=== PATIENT | male | born 1950 | race Caucasian/White ===

== ENCOUNTER 2021-11-03 13:12 | Inpatient (IN) | payer OTHER ==
[~2021-11-03] VITALS: Ht 170.2 cm; Wt 77.6 kg
--- NOTE | 2021-11-03 13:13 | NUR ---
[facility], FOUND BY IN THE FLOOR W/ AMS. LKW 1120, BG 242 BECK TENDER. FEELING SICK, DIARRHEA X 2 DAYS. TO ER BED 1, HOOKED TO MONITOR, CHANGED TO HOSP GOWN, WARM BLABNKET PROVIDED. AAO x 2. BREATHING EVEN AND UNLABORED. AWAITING MD RECINOS
--- NOTE | 2021-11-03 13:25 | NUR ---
BLOOD DRAWN AND SENT TO LAB.
--- NOTE | 2021-11-03 13:28 | NUR ---
DR RUIZ AT BEDSIDE
[2021-11-03 14:27] LABS: BASOPHILS % (AUTO) 0.1 % (0.0-2.0); HEMATOCRIT 48 % (39-51); HEMOGLOBIN 16.2 g/dL (13.5-17.5); LYMPHOCYTES # (AUTO) 0.6 K/uL (0.8-4.8); MEAN CORPUSCULAR HGB CONC 34 g/dl (31.0-36.0); MEAN CORPUSCULAR VOLUME 97 fL (80-96); MONOCYTES # (AUTO) 1.2 K/uL (0.1-1.30); MONOCYTES % (AUTO) 8.3 % (2.0-12.0); NEUTROPHILS # (AUTO) 12.4 K/uL (1.8-8.9); NEUTROPHILS % (AUTO) 87.6 % (43.0-81.0); PLATELET COUNT (AUTO) 209 K/uL (150-450); WHITE BLOOD COUNT (AUTO) 14.2 K/uL (4.3-11.0)
[2021-11-03] MEDS ORDERED: IV NS 0.9% 1,000 ML IV ONE (14:30)
[2021-11-03 14:42] LABS: CALCIUM, SERUM 8.9 mg/dL (8.5-10.1); CARBON DIOXIDE 26 mmol/L (21-32); CHLORIDE 95 mmol/L (98-107); GLUCOSE 136 mg/dL (74-106); POTASSIUM 3.5 mmol/L (3.5-5.1); SODIUM SERUM 131 mmol/L (136-145); UREA NITROGEN, BLOOD 32 mg/dL (7-18)
[2021-11-03 14:57] LABS: ALANINE AMINOTRANSFERASE 44 U/L (12-78); ALBUMIN 2.7 g/dL (3.4-5.0); ALKALINE PHOSPHATASE 86 U/L (46-116); ASPARTATE AMINOTRANSFERASE 51 U/L (15-37); BILIRUBIN,DIRECT 0.5 mg/dL (0.0-0.2); BILIRUBIN,TOTAL 1.5 mg/dL (0.2-1.0); TOTAL PROTEIN, SERUM 7.8 g/dL (6.4-8.2)
--- NOTE | 2021-11-03 14:57 | NUR ---
COVID TEST COLLECTED AND SENT
--- NOTE | 2021-11-03 15:26 | NUR ---
URINE SAMPLE COLLECTED AND SENT TO LAB
[2021-11-03 15:55] LABS: BILIRUBIN,URINE SMALL (NEGATIVE); COLOR,URINE YELLOW (YELLOW); LEUKOCYTE ESTERASE ,URINE NEGATIVE (NEGATIVE); NITRITE, URINE NEGATIVE (NEGATIVE); PROTEIN,URINE >=300 mg/dl (NEGATIVE); UGLUCOSE NEGATIVE (NEGATIVE)
[2021-11-03 16:16] LABS: BACTERIA,URINE 1+ /HPF (None Seen); COARSE GRANULAR CASTS,URINE Few /LPF (None Seen); RBC,URINE 51-80 /HPF (0-2); SQUAMOUS EPITHELIAL CELL,UR 0-2 /HPF (None Seen); WBC,URINE 0-2 /HPF (0-3)
[2021-11-03 16:17] LABS: FINE GRANULAR CASTS,URINE Few /LPF (None Seen); MUCUS,URINE Few /LPF (None Seen)
[2021-11-03 16:41] LABS: ACETAMINOPHEN 0 ug/ml (10-30); ALCOHOL, BLOOD < 3 mg/dL (0-0)
[2021-11-03] MEDS ORDERED: TAMS-12 PO (16:55)
[2021-11-03] MEDS ORDERED: LOSA25TA27 PO (16:55)
[2021-11-03] MEDS ORDERED: ROSU20TA32 PO (16:55)
[2021-11-03] MEDS ORDERED: FEBU80TA PO (16:55)
[2021-11-03] MEDS ORDERED: IV NS 0.9% 1,000 ML BAG IV ONE (17:00)
[2021-11-03] MEDS ORDERED: DOXYCYCLINE 100 MG in IV D5W 100 ML IV ONE (17:00)
[2021-11-03] MEDS ORDERED: CEFTRIAXONE 1GM BAG (ER ONLY) 1 GM/50 ML PIGGYBACK IV ONE (17:00)
[2021-11-03] MEDS ORDERED: CEFTRIAXONE 1GM BAG (ER ONLY) 50 ML IV ONE (17:01)
[2021-11-03] MEDS ORDERED: IV NS 0.9% 500 ML BAG IV ONE (17:30)
[2021-11-03] MEDS ORDERED: MAG HYDROX/AL HYDROX/SIMETH 30 ML UDC PO PRN (18:00)
[2021-11-03] MEDS ORDERED: HYDROCODONE/APAP 10/325MG TABLET PO PRN (18:00)
[2021-11-03] MEDS ORDERED: MAGNESIUM HYDROXIDE 30 ML UDC PO PRN (18:00)
[2021-11-03] MEDS ORDERED: Z GUARD REMEDY 4 OZ OINT TP PRN (18:00)
[2021-11-03] MEDS ORDERED: ACETAMINOPHEN 325 MG TABLET PO PRN (18:00)
[2021-11-03] MEDS ORDERED: ONDANSETRON HCL/PF 4 MG/2 ML VIAL IVP PRN (18:00)
--- NOTE | 2021-11-03 19:25 | NUR ---
REPORT GIVEN TO RUBY BERRY FOR [facility]
--- NOTE | 2021-11-03 21:32 | NUR ---
PAGED MARIS EPRP. AWAITING A CALL BACK FROM MARIS DENSON.
--- NOTE | 2021-11-03 21:48 | NUR ---
MARIS ON PHONE WITH ER
[2021-11-03] MEDS: ATORVASTATIN 40 MG TABLET PO SCH (22:00)
--- NOTE | 2021-11-04 00:42 | NUR ---
RECEIVED A CALL FROM DR. MAS FROM [facility]. PT IS AUTHORIZED TO STAYN AT [facility]
[2021-11-04] MEDS: IV NS 0.9% 1,000 ML IV PRN (03:50)
[2021-11-04] MEDS: TAMSULOSIN 0.4 MG CAP.SR.24H PO SCH ×2 (05:42→22:42)
[2021-11-04] MEDS ORDERED: TAMSULOSIN 0.4 MG CAP.SR.24H ONE (05:42)
--- NOTE | 2021-11-04 06:49 | NUR ---
LAB AT BEDSIDE
[2021-11-04 07:37] LABS: BASOPHILS % (AUTO) 0.1 % (0.0-2.0); HEMATOCRIT 44 % (39-51); HEMOGLOBIN 15.2 g/dL (13.5-17.5); LYMPHOCYTES # (AUTO) 0.6 K/uL (0.8-4.8); LYMPHOCYTES % (AUTO) 4.4 % (20.0-44.0); MEAN CORPUSCULAR HGB CONC 35 g/dl (31.0-36.0); MEAN CORPUSCULAR VOLUME 96 fL (80-96); MONOCYTES % (AUTO) 6.5 % (2.0-12.0); NEUTROPHILS # (AUTO) 13.1 K/uL (1.8-8.9); PLATELET COUNT (AUTO) 197 K/uL (150-450); RED BLOOD CELL COUNT(AUTO) 4.58 MIL/uL (4.5-6.0); WHITE BLOOD COUNT (AUTO) 14.7 K/uL (4.3-11.0)
[2021-11-04 08:00] LABS: CALCIUM, SERUM 8.6 mg/dL (8.5-10.1); CREATININE 1.9 mg/dL (0.6-1.3); MAGNESIUM 1.8 mg/dL (1.8-2.4); POTASSIUM 3.1 mmol/L (3.5-5.1)
--- NOTE | 2021-11-04 08:25 | NUR ---
TELE BED 112
[2021-11-04] MEDS ORDERED: POTASSIUM CL. PREMIX PERIPHER. 50 ML ONE (08:50)
[2021-11-04] MEDS: POTASSIUM CL. PREMIX PERIPHER. 50 ML IV SCH ×4 (09:00→12:25)
[2021-11-04] MEDS: DOXYCYCLINE 100 MG in IV D5W 100 ML IV SCH ×2 (09:06→21:13)
--- NOTE | 2021-11-04 09:14 | NUR ---
report given to lalo saenz. pt awaiting transfer to floor.
--- NOTE | 2021-11-04 09:30 | NUR ---
Patient admitted from ER reported by Esteban BERRY, admitting Dx is pneumonia. Respiratory even and unlabored on room air. Skin is warm to touch keep clean/dry. Kept elevated HOB for ensure airway and lowest bed of position for safety. Call light within reach. Will continue to monitor.
[2021-11-04] MEDS: LOSARTAN POTASSIUM 25 MG TABLET PO SCH (10:37)
[2021-11-04] MEDS: CEFTRIAXONE 1 G in IV D5W 50 ML IV SCH (16:29)
--- NOTE | 2021-11-04 18:07 | NUR ---
RN Closing Note Patient resting in bed, remains AO x 3-4. Respiratory even and unlabored on room air. Does no appears pain or discomfort. Skin is warm to touch, keep clean/dry, intact new IV site on right forearm. Patient started Abx and tolerated, no adverse reaction observed. Kept elevated HOB for airway and lower position of the bed for safety. Call light within reach, all needs met. will endorse retail shift supervisor.
[2021-11-04 20:00] VITALS: BP 129/55
[2021-11-04] MEDS: ATORVASTATIN 40 MG TABLET PO SCH (22:42)
[2021-11-05] VITALS: BP 124/75
[2021-11-05] MEDS: IV NS 0.9% 1,000 ML IV PRN (02:19)
[2021-11-05 07:11] LABS: BASOPHILS % (AUTO) 0.2 % (0.0-2.0); EOSINOPHILS % (AUTO) 0.1 % (0.0-6.0); HEMATOCRIT 40 % (39-51); HEMOGLOBIN 14.2 g/dL (13.5-17.5); LYMPHOCYTES # (AUTO) 0.7 K/uL (0.8-4.8); LYMPHOCYTES % (AUTO) 7.6 % (20.0-44.0); MEAN CORPUSCULAR HGB CONC 35 g/dl (31.0-36.0); MEAN CORPUSCULAR VOLUME 95 fL (80-96); MONOCYTES # (AUTO) 0.9 K/uL (0.1-1.30); MONOCYTES % (AUTO) 8.9 % (2.0-12.0); NEUTROPHILS # (AUTO) 8.1 K/uL (1.8-8.9); NEUTROPHILS % (AUTO) 83.2 % (43.0-81.0); PLATELET COUNT (AUTO) 198 K/uL (150-450); RED BLOOD CELL COUNT(AUTO) 4.22 MIL/uL (4.5-6.0); WHITE BLOOD COUNT (AUTO) 9.7 K/uL (4.3-11.0)
--- NOTE | 2021-11-05 07:13 | NUR ---
RN OPENING NOTES PT IN BED RESTING. PT IS A/O X 3-4. NO SIGNS OF DISTRESS OR SOB. BREATHING UNLABORED. PT HAS R FA 22G RUNNING NS @ 75ML/HR. ALL SAFETY MEASURES IN PLACE. SIDE RAILS UP X 3, BED IN LOWEST LOCKED POSITION. CALL LIGHT WITHIN REACH. WILL CONTINUE TO MONITOR THROUGHOUT SHIFT.
--- NOTE | 2021-11-05 07:29 | NUR ---
campground attendant Closing Notes Patient awake in bed, alert/oriented x 4, pt stable on RA, no s/s of distress or sob noted, breathing even and unlabored. No significant changes throughout shift, medications given as ordered, pt needs met throughout shift. Patient on external electronic device monitor reading sinus rhythm with PAC. Patient continues to have diarrhea. Safety measures in place: Call light within reach, side rails up x 2, bed locked in low position. Endorsed to day shift nurse for continuity of care
[2021-11-05 07:52] LABS: BILIRUBIN,TOTAL 0.8 mg/dL (0.2-1.0); CREATININE 1.5 mg/dL (0.6-1.3); MAGNESIUM 2.1 mg/dL (1.8-2.4); PHOSPHORUS 2.7 mg/dL (2.5-4.9); POTASSIUM 3.2 mmol/L (3.5-5.1); TOTAL PROTEIN, SERUM 6.3 g/dL (6.4-8.2)
[2021-11-05 08:25] VITALS: BP 114/74
[2021-11-05] MEDS: DOXYCYCLINE 100 MG in IV D5W 100 ML IV SCH (08:25)
[2021-11-05] MEDS: LOSARTAN POTASSIUM 25 MG TABLET PO SCH (08:25)
[2021-11-05] MEDS ORDERED: POTASSIUM CHLORIDE 10 MEQ TABLET.SA PO ONE (10:00)
[2021-11-05] MEDS: CEFTRIAXONE 1 G in IV D5W 50 ML IV SCH (16:17)
--- NOTE | 2021-11-05 19:02 | NUR ---
RN CLOSING NOTE PATIENT IN BED, RESTING. PT IS A/0 X 4 AND IS ABLE TO MAKE NEEDS KNOWN. PATIENT NOT IN ANY APPARENT DISTRESS, NO SIGNS OF SOB OR LABORED BREATHING. . STILL COMPLAINS OF PAIN AND ITCHING, MD NOTIFIED. PATIENT'S RFA 20 G PATENT AND INTACT, SALINE LOCKED ONLY. SAFETY MEASURES IN PLACE. BED IN LOWEST LOCKED POSITION, SIDE RAILS UP X 3, CALL LIGHT WITHIN REACH. WILL ENDORSE TO QUAIL FARMER NURSE. Addendum: 11/05/21 at 1905 by NEVA MURDOCK RN DISREGARD RN CLOSING NOTE. WRONG PATIENT. UPDATED RN CLOSING NOTE IS FOLLOWS; PT RESTING IN BED, REMAINS A/O X3-4. NO SIGNS OF RESP. DISTRESS OR SOB. BREATHING IS UNLABORED AND EVEN. PT SHOWS NO SIGN OF PAIN OR DISCOMFORT. SKIN IS WARM TO TOUCH. KEPT CLEAN AND DRY, INTACT IV IN R FA 22G RUNNING NS 75ML/HR. . PT. TOLERATED ALL INTERVENTIONS AND MEDS WELL. ALL NEEDS MET DURING SHIFT. ALL SAFETY MEASURES IN PLACE, BED IN LOWEST LOCKED POSITION, SIDE RAILS UP X3, CALL LIGHT WITHIN REACH. WILL ENDORSE TO QUAIL FARMER NURSE.
--- NOTE | 2021-11-05 19:45 | NUR ---
1944 Patient in bed with at bedside. Awake and oriented x 3. No signs of distress noted. Tolerates room air, denies sob difficulty breathing. Able to move in bed with minimal assist. Infusing to right hand site. No signs of infiltration noted. Pending transfer to [facility]. Per Tara patient was accepted and somebody from [facility] will call us. Kept patient comfortable. All needs attended. Call light placed within reach and instructed to call for assistance.
--- NOTE | 2021-11-05 19:55 | NUR ---
1954 Received a call from Marley of [facility] and she said patient has been accepted by Dr. Layton and will go to room 5315A Telemetry unit, chart picker time at 2230. KRISTI Jean made aware of discharge to [facility].
--- NOTE | 2021-11-05 20:10 | NUR ---
[address] Qureshi and made him aware that patient has been accepted at [facility] and will be picked up [facility] at 2230. Asked him if he could do discharge summary and per him there is already one in the chart done by NAE Méndez today. Per Dr. Qureshi ok to discharge to [facility].
--- NOTE | 2021-11-05 20:20 | NUR ---
2020 Pt. Tara at bedside and made aware of patient's pending transfer to [facility] and very appreciative. Patient awake in bed in no apparent distress. Tolerates room air. Independent with turning. Call light within reach and instructed to call for assistance.
--- NOTE | 2021-11-05 21:45 | NUR ---
INDUSTRIAL DIAMOND POLISHER NOTES GAVE REPORT FOR TRANSFER TO [facility] FROM [facility].
--- NOTE | 2021-11-05 22:14 | NUR ---
[id number] Ambulance here for cherry picker operator. Report given to EMT accordingly. still at bedside.
--- NOTE | 2021-11-05 22:23 | NUR ---
2223 Left for [facility] accompanied by . Patient awake and oriented. No complaints and no distress noted.
[2021-11-06 12:06] LABS: CREATININE KINASE (CK),MB 5.8 ng/mL (0.0-10.4)
[2021-11-06 16:07] LABS: *SPE A/G RATIO 0.7 (0.7-1.7); *SPE ALPHA-1-GLOBULIN 0.4 g/dL (0.0-0.4); *SPE ALPHA-2-GLOBULIN 1.1 g/dL (0.4-1.0); *SPE M-SPIKE Not Observed g/dL (Not Observed)
== END 2021-11-05 22:23 | disposition short-term general hospital (02) | DRG 189 ==
LOC: ER 13:35 → TRANSITION 11-04 03:44 → MEDSG1 11-04 08:30 → TELE1 11-04 12:16 → MEDSG1 11-05 01:08 → TELE1 11-05 01:42 → UNDODISIN 11-06 00:08
PROVIDERS: ADMIT Internal Medicine; ATTEND Internal Medicine
DX: J96.01 Acute respiratory failure with hypoxia (principal); J15.9 Unspecified bacterial pneumonia; N17.0 Acute kidney failure with tubular necrosis; I69.359 Hemiplegia and hemiparesis following cerebral infarction affecting unspecified side; E87.1 Hypo-osmolality and hyponatremia; N17.9 Acute kidney failure, unspecified; Z20.822 Contact with and (suspected) exposure to COVID-19; E78.00 Pure hypercholesterolemia, unspecified; E78.5 Hyperlipidemia, unspecified; M10.9 Gout, unspecified; E86.1 Hypovolemia; N40.0 Benign prostatic hyperplasia without lower urinary tract symptoms; Z79.899 Other long term (current) drug therapy; E86.0 Dehydration; I95.1 Orthostatic hypotension; I12.9 Hypertensive chronic kidney disease with stage 1 through stage 4 chronic kidney disease, or unspecified chronic kidney disease; N18.9 Chronic kidney disease, unspecified; E87.6 Hypokalemia; R31.0 Gross hematuria; R32 Unspecified urinary incontinence; W19.XXXA Unspecified fall, initial encounter; Y92.009 Unspecified place in unspecified non-institutional (private) residence as the place of occurrence of the external cause; Z68.30 Body mass index [BMI] 30.0-30.9, adult
CPT/HCPCS: 36415; 70450-TC; 71045-TC; 73564-TC; 73590-TC; 76770-TC; 80048-TC; 80053-TC; 80076-TC; 81001; 82550-TC; 82553; 82962-TC; 83605-TC; 83735-TC; 83970; 84100-TC; 84155; 84165; 84484-TC; 85025-TC; 85730-TC; 87040-TC; 87081-TC; 87086-TC; 97116-TC; 97530-TC; C9803; G0378; G0480; J0696; J3480; J3490; J7030; J7040; J7060